=== PATIENT | female | born 1985 | race Caucasian/White ===

== ENCOUNTER 2023-07-10 18:50 | Inpatient (IN) | payer OTHER ==
[2023-07-10] MEDS ORDERED: AZITHROMYCIN 500 MG TABLET PO ONE (21:45)
[2023-07-10] MEDS: ELECTROLYTE-148 SOLN 1,000 ML IV SCH (22:40)
[2023-07-10] MEDS ORDERED: AMPICILLIN SODIUM 2 GM VIAL ONE (22:42)
[2023-07-10] MEDS ORDERED: BETAMET ACET/BETAMET NA PH 30 MG/5 ML VIAL ONE (22:42)
[2023-07-10] MEDS: AMPICILLIN - 2 GM in SODIUM CHLORIDE 100 ML IVPB SCH (22:45)
[2023-07-10] MEDS: BETAMET ACET/BETAMET NA PH 30 MG/5 ML VIAL IM SCH (22:50)
[2023-07-10 23:13] LABS: BASO % 0.3 % (0-2.0); EOS % 0.7 % (0-4.5); HEMATOCRIT 29.6 % (32.4-45.2); HEMOGLOBIN 10.2 GM/dL (10.7-15.3); LYMPH % 19.4 % (8-40); MCH 34.5 pg (25.7-33.7); MCHC 34.4 g/dl (32.0-36.0); MEAN CELL VOLUME 100.3 fl (80-96); MEAN PLT VOLUME 7.2 fl (7.5-11.1); MONO % 6.2 % (3.8-10.2); NEUT % 73.4 % (42.8-82.8); PLATELET COUNT 277 10^3/uL (134-434); RBC 2.95 M/mm3 (3.60-5.2); RDW 14.7 % (11.6-15.6); WHITE BLOOD COUNT 7.9 K/mm3 (4.0-10.0)
[2023-07-10 23:25] LABS: PROTHROMBIN TIME (PATIENT) 11.6 SEC (9.7-13.0)
[2023-07-10 23:28] LABS: ACTIVATED PTT 26.1 SECONDS (25.2-36.5)
[2023-07-10 23:31] VITALS: BMI 29.2
[2023-07-10 23:33] LABS: URINE AMPHETAMINES NEGATIVE (NEGATIVE)
[2023-07-10 23:34] LABS: COCAINE, UR NEGATIVE (NEGATIVE); OPIATES, URI NEGATIVE (NEGATIVE); URINE BARBITURATES NEGATIVE (NEGATIVE)
[2023-07-10 23:40] LABS: PHENCYCLIDINE,URINE NEGATIVE (NEGATIVE)
[2023-07-10 23:41] LABS: URINE BENZODIAZEPINES NEGATIVE (NEGATIVE)
[2023-07-10 23:46] LABS: METHADONE, UR NEGATIVE (NEGATIVE)
[2023-07-10 23:54] LABS: CALCIUM 8.5 mg/dL (8.5-10.1); POTASSIUM 3.7 mmol/L (3.5-5.1)
[2023-07-10 23:55] LABS: BLOOD UREA NITROGEN 7.2 mg/dL (7-18)
[2023-07-10 23:58] LABS: CREATININE 0.4 mg/dL (0.55-1.3)
[2023-07-11 02:16] LABS: HIV INTERPRETATION NEGATIVE (NEGATIVE)
[2023-07-11] MEDS ORDERED: AMPICILLIN SODIUM 2 GM VIAL ONE ×4 (03:57→21:22)
[2023-07-11] MEDS: AMPICILLIN - 2 GM in SODIUM CHLORIDE 100 ML IVPB SCH ×4 (04:10→21:30)
[2023-07-11 10:12] LABS: POC NITRAZINE POS
[2023-07-11] MEDS: BETAMET ACET/BETAMET NA PH 30 MG/5 ML VIAL IM SCH ×2 (11:30→22:01)
[2023-07-11] MEDS ORDERED: BETAMET ACET/BETAMET NA PH 30 MG/5 ML VIAL IM ONE (11:46)
[2023-07-11] MEDS ORDERED: ACETAMINOPHEN 325 MG TABLET (FP) ONE (20:27)
[2023-07-11] MEDS ORDERED: ACETAMINOPHEN 325 MG TABLET (FP) PO ONE (21:19)
[2023-07-11] MEDS: ELECTROLYTE-148 SOLN 1,000 ML IV SCH (23:00)
[2023-07-12] MEDS ORDERED: AMPICILLIN SODIUM 2 GM VIAL ONE ×2 (03:36→08:50)
[2023-07-12] MEDS: AMPICILLIN - 2 GM in SODIUM CHLORIDE 100 ML IVPB SCH ×3 (03:40→17:44)
[2023-07-12 12:16] LABS: BASO % 0.5 % (0-2.0); EOS % 0.1 % (0-4.5); HEMATOCRIT 29.9 % (32.4-45.2); HEMOGLOBIN 10.1 GM/dL (10.7-15.3); LYMPH % 6.5 % (8-40); MCH 34.3 pg (25.7-33.7); MCHC 33.7 g/dl (32.0-36.0); MEAN CELL VOLUME 101.6 fl (80-96); MEAN PLT VOLUME 7.1 fl (7.5-11.1); MONO % 5.1 % (3.8-10.2); NEUT % 87.8 % (42.8-82.8); PLATELET COUNT 291 10^3/uL (134-434); RBC 2.94 M/mm3 (3.60-5.2); WHITE BLOOD COUNT 18.9 K/mm3 (4.0-10.0)
[2023-07-12] MEDS: ELECTROLYTE-148 SOLN 1,000 ML IV SCH (14:00)
[2023-07-12] MEDS ORDERED: CITRIC ACID/SODIUM CITRATE 30 ML UNIT-DOSE CUP PO ONE (14:40)
[2023-07-12] MEDS ORDERED: FENTANYL CITRATE/PF 50 MCG/ML VIAL ONE (15:39)
[2023-07-12] MEDS ORDERED: morphine SULFATE/PF 1 MG/2 ML (2cc Syringe - QUVA) ONE (15:39)
[2023-07-12] MEDS ORDERED: ONDANSETRON 4 MG/2 ML VIAL ONE (15:52)
[2023-07-12] MEDS ORDERED: ceFAZolin SODIUM 1 GM VIAL ONE ×2 (15:52→23:13)
[2023-07-12] MEDS ORDERED: IBUPROFEN 800 MG/8 ML IJ IVPB PRN (16:50)
[2023-07-12] MEDS ORDERED: BENZOCAINE 20% 57 GM BOTTLE TP PRN (16:50)
[2023-07-12] MEDS ORDERED: WITCH HAZEL 50% (TUCKS) 40 PAD/JAR PAD TP PRN (16:50)
[2023-07-12] MEDS ORDERED: METHYLERGONOVINE MALEATE 0.2 MG/1 ML AMP IM PRN (16:50)
[2023-07-12 17:05] LABS: CORD HCO3 21.8 mmHg (20-29); CORD PCO2 37.7 mmHg (30-78); CORD pH 7.38 (7.14-7.44)
[2023-07-12 17:06] LABS: CORD HCO3 23.6 mmHg (20-29); CORD PCO2 43.7 mmHg (30-78); CORD pH 7.351 (7.14-7.44)
[2023-07-12] MEDS: OXYTOCIN 20 UNITS in 0.9% NS 20 UNIT/1,000 ML INFUS.BAG IV SCH (17:20)
[2023-07-12] MEDS: FERROUS SO4 325 MG TABLET (FP) PO SCH (17:46)
[2023-07-12] MEDS ORDERED: SODIUM CHLORIDE 1,000 ML IV STA (21:27)
[2023-07-12] MEDS: AMOXICILLIN 250 MG CAPSULE PO SCH (22:00)
[2023-07-12 22:15] LABS: BASO % 0.1 % (0-2.0); EOS % 0.7 % (0-4.5); HEMATOCRIT 9.5 % (32.4-45.2); LYMPH % 7.4 % (8-40); MCH 34.5 pg (25.7-33.7); MCHC 32.4 g/dl (32.0-36.0); MEAN CELL VOLUME 106.4 fl (80-96); MEAN PLT VOLUME 7.1 fl (7.5-11.1); MONO % 1.5 % (3.8-10.2); NEUT % 90.3 % (42.8-82.8); RBC 0.89 M/mm3 (3.60-5.2); RDW 15.7 % (11.6-15.6); WHITE BLOOD COUNT 2.5 K/mm3 (4.0-10.0)
[2023-07-12] MEDS ORDERED: SUCCINYLCHOLINE CHLORIDE 200 MG/10 ML SYRINGE ONE (22:16)
[2023-07-12] MEDS ORDERED: ROCURONIUM BROMIDE 50 MG/5 ML SYRINGE ONE ×2 (22:16→23:48)
[2023-07-12] MEDS ORDERED: VASOPRESSIN 20 UNITS/ML VIAL IV ONE (22:17)
[2023-07-12 22:21] LABS: HEMOGLOBIN 3.1 GM/dL (10.7-15.3); PLATELET COUNT 62 10^3/uL (134-434)
[2023-07-12] MEDS ORDERED: MIDAZOLAM HCL 2 MG/2 ML SINGLE DOSE VIAL ONE ×2 (22:45→23:46)
[2023-07-12 22:48] LABS: ANISOCYTOSIS 1+; MACROCYTOSIS 0; ROULEAU 1+
[2023-07-12] MEDS ORDERED: ceFAZolin SODIUM 1 GM VIAL IVPB ONE (23:13)
[2023-07-12] MEDS ORDERED: DEXAMETHASONE SOD PHOSPHATE 4 MG/1 ML VIAL ONE (23:14)
[2023-07-12] MEDS ORDERED: METHYLERGONOVINE MALEATE 0.2 MG/1 ML AMP IM ONE (23:48)
[2023-07-13] MEDS ORDERED: SODIUM BICARBONATE 8.4% 50 MEQ/50 ML DISP.SYRIN ONE (00:05)
[2023-07-13] MEDS ORDERED: CALCIUM CHLORIDE 1 GM/10 ML *DISP.SYRIN ONE ×2 (00:05)
[2023-07-13] MEDS ORDERED: TRANEXAMIC ACID 1000 MG/10 ML VIAL ONE (00:19)
[2023-07-13 00:31] LABS: HEMATOCRIT 22.8 % (32.4-45.2); HEMOGLOBIN 7.6 GM/dL (10.7-15.3); MCH 31.1 pg (25.7-33.7); MCHC 33.3 g/dl (32.0-36.0); MEAN CELL VOLUME 93.4 fl (80-96); MEAN PLT VOLUME 6.5 fl (7.5-11.1); PLATELET COUNT 96 10^3/uL (134-434); RBC 2.44 M/mm3 (3.60-5.2); WHITE BLOOD COUNT 8.1 K/mm3 (4.0-10.0)
[2023-07-13] MEDS ORDERED: ROCURONIUM BROMIDE 50 MG/5 ML SYRINGE ONE (00:51)
[2023-07-13 00:54] LABS: ALBUMIN 1.6 g/dl (3.4-5.0)
[2023-07-13 00:57] LABS: CREATININE 0.8 mg/dL (0.55-1.3)
[2023-07-13 00:59] LABS: BILIRUBIN,TOTAL 0.6 mg/dL (0.2-1); TOT PROT 3.3 g/dl (6.4-8.2)
[2023-07-13] MEDS ORDERED: PROPOFOL 1,000,000 MCG/100 ML VIAL ONE (01:07)
[2023-07-13] MEDS: PROPOFOL 1,000,000 MCG/100 ML VIAL IVPB SCH (01:15)
[2023-07-13] MEDS ORDERED: PROPOFOL 1000 MG/100 ML VIAL IVPB ONE (01:15)
[2023-07-13 01:55] LABS: CALCIUM 12.2 mg/dL (8.5-10.1)
[2023-07-13 01:57] LABS: ARTERIAL BLD GAS O2 SATURATION 94.3 % (95-98); ARTERIAL BLOOD GAS BASE EXCESS -6.8 mmol/L (-2-2); ARTERIAL BLOOD GAS PO2 81.3 mmHg (80-100); ARTERIAL BLOOD GAS pH 7.258 (7.350-7.450)
[2023-07-13] MEDS ORDERED: FENTANYL CITRATE/PF 50 MCG/ML VIAL IVPUSH PRN (02:13)
[2023-07-13 02:15] LABS: VENT MODE A/C; VENT RATE 14
[2023-07-13] MEDS: LACTATED RINGERS SOLUTION 1,000 ML/1,000 ML INFUS.BAG IV SCH (02:30)
[2023-07-13 02:52] LABS: HEMATOCRIT 33.2 % (32.4-45.2); HEMOGLOBIN 11.3 GM/dL (10.7-15.3); MCHC 34.1 g/dl (32.0-36.0); MEAN CELL VOLUME 88.1 fl (80-96); MEAN PLT VOLUME 6.9 fl (7.5-11.1); PLATELET COUNT 82 10^3/uL (134-434); RBC 3.77 M/mm3 (3.60-5.2); RDW 16.9 % (11.6-15.6); WHITE BLOOD COUNT 13.5 K/mm3 (4.0-10.0)
[2023-07-13 03:11] LABS: POTASSIUM 3.7 mmol/L (3.5-5.1)
[2023-07-13 03:13] LABS: BLOOD UREA NITROGEN 7.4 mg/dL (7-18); MAGNESIUM 1.4 mg/dL (1.8-2.4)
[2023-07-13 03:17] LABS: CREATININE 0.7 mg/dL (0.55-1.3); PHOSPHOROUS 3.8 mg/dL (2.5-4.9)
[2023-07-13 03:36] LABS: CALCIUM 8.5 mg/dL (8.5-10.1)
[2023-07-13] MEDS: ELECTROLYTE-148 SOLN 1,000 ML IV SCH ×2 (03:52→21:54)
[2023-07-13 03:58] LABS: ANISOCYTOSIS 0; MACROCYTOSIS 0
[2023-07-13] MEDS ORDERED: LACTATED RINGERS SOLUTION 1,000 ML/1,000 ML INFUS.BAG IV STA (04:25)
[2023-07-13] MEDS: NOREPINEPHRINE BITARTRATE/D5W 8 MG/250 ML BAG IVPB SCH (04:30)
[2023-07-13] MEDS: FENTANYL NS IVPB 500 MCG/100 ML BAG IVPB SCH (04:48)
[2023-07-13] MEDS ORDERED: oxyCODONE HCL 5 MG TABLET PO PRN (04:50)
[2023-07-13] MEDS: AMOXICILLIN 250 MG CAPSULE PO SCH (06:16)
[2023-07-13 07:19] LABS: HEMATOCRIT 31.1 % (32.4-45.2); HEMOGLOBIN 10.6 GM/dL (10.7-15.3); MCH 29.9 pg (25.7-33.7); MCHC 34.1 g/dl (32.0-36.0); MEAN CELL VOLUME 87.9 fl (80-96); MEAN PLT VOLUME 7.4 fl (7.5-11.1); PLATELET COUNT 113 10^3/uL (134-434); RBC 3.54 M/mm3 (3.60-5.2); RDW 17.3 % (11.6-15.6); WHITE BLOOD COUNT 17.7 K/mm3 (4.0-10.0)
[2023-07-13 07:36] LABS: ARTERIAL BLD GAS O2 SATURATION 98.7 % (95-98); ARTERIAL BLOOD GAS BASE EXCESS -2.8 mmol/L (-2-2); ARTERIAL BLOOD GAS PO2 131.4 mmHg (80-100); ARTERIAL BLOOD GAS pH 7.433 (7.350-7.450)
[2023-07-13 07:38] LABS: VENT MODE A/C
[2023-07-13 07:39] LABS: VENT RATE 18
[2023-07-13] MEDS ORDERED: MAGNESIUM SULF 50% (8.12 MEQ/2 ML-1 GM VIAL) IVPB ONE (08:19)
[2023-07-13 09:54] LABS: ANISOCYTOSIS 0; HELMET CELLS 0; HOWELL-JOLLY BODIES 0; MACROCYTOSIS 0; OVALOCYTE 0; ROULEAU 0; SICKELED CELLS 0; TARGET CELLS 0; TEAR DROP CELLS 0; TOXIC GRANULATION 0
[2023-07-13 11:09] LABS: INR 1.14 (0.83-1.09); PROTHROMBIN TIME (PATIENT) 13.2 SEC (9.7-13.0)
[2023-07-13 11:11] LABS: ACTIVATED PTT 26.8 SECONDS (25.2-36.5)
[2023-07-13] MEDS: OXYTOCIN 20 UNITS in 0.9% NS 20 UNIT/1,000 ML INFUS.BAG IV SCH ×2 (11:14→19:29)
[2023-07-13] MEDS: ACETAMINOPHEN 1000 MG/100 ML BAG IVPB PRN ×2 (13:14→19:19)
[2023-07-13] MEDS: FERROUS SO4 325 MG TABLET (FP) PO SCH ×2 (13:15→17:38)
[2023-07-13] MEDS: PRENATAL VITAMINS W/ FOLIC ACID TABLET (FP) PO SCH (13:15)
[2023-07-13 15:12] LABS: HEMATOCRIT 26.7 % (32.4-45.2); MCH 29.5 pg (25.7-33.7); MCHC 33.8 g/dl (32.0-36.0); MEAN CELL VOLUME 87.3 fl (80-96); MEAN PLT VOLUME 7.5 fl (7.5-11.1); PLATELET COUNT 69 10^3/uL (134-434); RBC 3.06 M/mm3 (3.60-5.2); RDW 17.5 % (11.6-15.6)
[2023-07-13] MEDS: MEROPENEM 1 GM in DEXTROSE 5%-WATER 100 ML IVPB SCH ×2 (15:33→17:35)
[2023-07-13] MEDS: VANCOMYCIN/WATER FOR INJ (PEG) 1,000 MG/200 ML BAG IVPB SCH (15:33)
[2023-07-13 15:38] LABS: ANISOCYTOSIS 0; HELMET CELLS 0; HOWELL-JOLLY BODIES 0; MACROCYTOSIS 0; OVALOCYTE 0; ROULEAU 0; SICKELED CELLS 0; TARGET CELLS 0; TEAR DROP CELLS 0; TOXIC GRANULATION 0
[2023-07-13] MEDS ORDERED: BISACODYL 10 MG SUPP.RECT RC PRN (16:50)
[2023-07-13] MEDS: SIMETHICONE 80 MG TAB.CHEW (FP) PO PRN ×2 (17:35→21:57)
[2023-07-13 20:52] LABS: BASO % 0.1 % (0-2.0); EOS % 0.3 % (0-4.5); HEMATOCRIT 25.4 % (32.4-45.2); HEMOGLOBIN 8.6 GM/dL (10.7-15.3); LYMPH % 3.4 % (8-40); MCH 29.6 pg (25.7-33.7); MCHC 33.9 g/dl (32.0-36.0); MEAN CELL VOLUME 87.3 fl (80-96); MEAN PLT VOLUME 7.6 fl (7.5-11.1); MONO % 3.7 % (3.8-10.2); NEUT % 92.5 % (42.8-82.8); PLATELET COUNT 67 10^3/uL (134-434); RBC 2.91 M/mm3 (3.60-5.2); RDW 17.7 % (11.6-15.6); WHITE BLOOD COUNT 16.6 K/mm3 (4.0-10.0)
[2023-07-13 21:08] LABS: INR 1.2 (0.83-1.09); PROTHROMBIN TIME (PATIENT) 13.9 SEC (9.7-13.0)
[2023-07-14] MEDS: PROPOFOL 1,000,000 MCG/100 ML VIAL IVPB SCH (01:15)
[2023-07-14] MEDS: ACETAMINOPHEN 1000 MG/100 ML BAG IVPB PRN (01:33)
[2023-07-14] MEDS: MEROPENEM 1 GM in DEXTROSE 5%-WATER 100 ML IVPB SCH ×2 (01:35→09:27)
[2023-07-14] MEDS: LACTATED RINGERS SOLUTION 1,000 ML/1,000 ML INFUS.BAG IV SCH (02:15)
[2023-07-14] MEDS: VANCOMYCIN/WATER FOR INJ (PEG) 1,000 MG/200 ML BAG IVPB SCH ×2 (02:38→15:27)
[2023-07-14] MEDS: FENTANYL NS IVPB 500 MCG/100 ML BAG IVPB SCH (04:00)
[2023-07-14] MEDS: NOREPINEPHRINE BITARTRATE/D5W 8 MG/250 ML BAG IVPB SCH (04:30)
[2023-07-14 07:52] LABS: INR 1.22 (0.83-1.09); PROTHROMBIN TIME (PATIENT) 14.1 SEC (9.7-13.0)
[2023-07-14 07:54] LABS: ACTIVATED PTT 27.9 SECONDS (25.2-36.5)
[2023-07-14 07:56] LABS: HEMATOCRIT 24.8 % (32.4-45.2); HEMOGLOBIN 8.4 GM/dL (10.7-15.3); MCH 29.4 pg (25.7-33.7); MCHC 33.6 g/dl (32.0-36.0); MEAN CELL VOLUME 87.4 fl (80-96); MEAN PLT VOLUME 8.8 fl (7.5-11.1); PLATELET COUNT 74 10^3/uL (134-434); RBC 2.84 M/mm3 (3.60-5.2); RDW 18.1 % (11.6-15.6); WHITE BLOOD COUNT 16.4 K/mm3 (4.0-10.0)
[2023-07-14 08:30] LABS: POTASSIUM 3.5 mmol/L (3.5-5.1)
[2023-07-14 08:34] LABS: ALBUMIN 1.9 g/dl (3.4-5.0); BLOOD UREA NITROGEN 7.2 mg/dL (7-18); CALCIUM 7.5 mg/dL (8.5-10.1)
[2023-07-14 08:37] LABS: CREATININE 0.4 mg/dL (0.55-1.3); PHOSPHOROUS 3.2 mg/dL (2.5-4.9)
[2023-07-14 08:39] LABS: BILIRUBIN,TOTAL 0.5 mg/dL (0.2-1); TOT PROT 4.1 g/dl (6.4-8.2)
[2023-07-14] MEDS: SIMETHICONE 80 MG TAB.CHEW (FP) PO PRN ×2 (09:27→16:56)
[2023-07-14] MEDS: FERROUS SO4 325 MG TABLET (FP) PO SCH ×2 (09:28→16:56)
[2023-07-14 09:46] LABS: ANISOCYTOSIS 2+; MACROCYTOSIS 0; OVALOCYTE 2+
[2023-07-14] MEDS ORDERED: oxyCODONE HCL 5 MG TABLET PO ONE (10:15)
[2023-07-14] MEDS: PRENATAL VITAMINS W/ FOLIC ACID TABLET (FP) PO SCH (13:05)
[2023-07-14] MEDS: POLYETHYLENE GLYCOL (HEALTHYLAX) 3350 17 GM PACKET PO SCH ×2 (15:28→21:26)
[2023-07-14] MEDS ORDERED: ACETAMINOPHEN 1000 MG/100 ML BAG IVPB PRN (15:29)
[2023-07-14] MEDS: PIPERACILLIN/TAZOB 4.5 GM 4.5 GM in DEXTROSE 5%-WATER 100 ML IVPB SCH (17:19)
[2023-07-14] MEDS: IBUPROFEN 600 MG TABLET (FP) PO PRN (21:26)
[2023-07-14 22:20] LABS: URINE APPEARANCE CLEAR; URINE BILIRUBIN NEGATIVE (NEGATIVE); URINE COLOR YELLOW; URINE GLUCOSE (UA) NEGATIVE (NEGATIVE); URINE KETONE NEGATIVE (NEGATIVE)
[2023-07-14 22:21] LABS: URINE LEUK ESTERASE TRACE (NEGATIVE); URINE NITRITE NEGATIVE (NEGATIVE); URINE PROTEIN NEGATIVE (NEGATIVE); URINE UROBILINOGEN 0.2 mg/dL (0.2-1.0)
[2023-07-14] MEDS: ELECTROLYTE-148 SOLN 1,000 ML IV SCH (22:35)
[2023-07-15] MEDS: PIPERACILLIN/TAZOB 4.5 GM 4.5 GM in DEXTROSE 5%-WATER 100 ML IVPB SCH ×3 (01:06→20:22)
[2023-07-15] MEDS: PROPOFOL 1,000,000 MCG/100 ML VIAL IVPB SCH (01:06)
[2023-07-15] MEDS: ACETAMINOPHEN 325 MG TABLET (FP) PO PRN ×3 (01:22→22:19)
[2023-07-15] MEDS: LACTATED RINGERS SOLUTION 1,000 ML/1,000 ML INFUS.BAG IV SCH (02:34)
[2023-07-15] MEDS: FENTANYL NS IVPB 500 MCG/100 ML BAG IVPB SCH (06:43)
[2023-07-15] MEDS: NOREPINEPHRINE BITARTRATE/D5W 8 MG/250 ML BAG IVPB SCH (06:44)
[2023-07-15] MEDS: IBUPROFEN 600 MG TABLET (FP) PO PRN ×3 (06:44→20:21)
[2023-07-15 07:41] LABS: HEMATOCRIT 24.6 % (32.4-45.2); HEMOGLOBIN 8.3 GM/dL (10.7-15.3); MCH 30.2 pg (25.7-33.7); MCHC 33.9 g/dl (32.0-36.0); MEAN CELL VOLUME 89.1 fl (80-96); MEAN PLT VOLUME 8.5 fl (7.5-11.1); PLATELET COUNT 94 10^3/uL (134-434); RBC 2.76 M/mm3 (3.60-5.2); RDW 18.1 % (11.6-15.6); WHITE BLOOD COUNT 10.5 K/mm3 (4.0-10.0)
[2023-07-15 07:57] LABS: POTASSIUM 3.6 mmol/L (3.5-5.1)
[2023-07-15 08:00] LABS: ALBUMIN 1.8 g/dl (3.4-5.0); CALCIUM 7.5 mg/dL (8.5-10.1)
[2023-07-15 08:01] LABS: BLOOD UREA NITROGEN 11.5 mg/dL (7-18); MAGNESIUM 1.9 mg/dL (1.8-2.4)
[2023-07-15 08:03] LABS: PHOSPHOROUS 3.9 mg/dL (2.5-4.9)
[2023-07-15 08:04] LABS: CREATININE 0.4 mg/dL (0.55-1.3)
[2023-07-15 08:05] LABS: BILIRUBIN,TOTAL 0.4 mg/dL (0.2-1); TOT PROT 4.3 g/dl (6.4-8.2)
[2023-07-15] MEDS: POLYETHYLENE GLYCOL (HEALTHYLAX) 3350 17 GM PACKET PO SCH ×2 (09:21→22:12)
[2023-07-15] MEDS: FERROUS SO4 325 MG TABLET (FP) PO SCH ×2 (09:21→17:39)
[2023-07-15] MEDS: PRENATAL VITAMINS W/ FOLIC ACID TABLET (FP) PO SCH (09:21)
[2023-07-15 10:17] LABS: ANISOCYTOSIS 0; HELMET CELLS 0; HOWELL-JOLLY BODIES 0; MACROCYTOSIS 0; OVALOCYTE 0; ROULEAU 0; SICKELED CELLS 0; TARGET CELLS 0; TEAR DROP CELLS 0; TOXIC GRANULATION 0
[2023-07-15 16:47] VITALS: RESP 18
[2023-07-15] MEDS ORDERED: WITCH HAZEL 50% (TUCKS) 40 PAD/JAR PAD TP PRN (17:43)
[2023-07-15] MEDS ORDERED: BISACODYL 10 MG SUPP.RECT RC PRN (17:43)
[2023-07-15] MEDS ORDERED: BENZOCAINE 20% 57 GM BOTTLE TP PRN (17:43)
[2023-07-15] MEDS: SIMETHICONE 80 MG TAB.CHEW (FP) PO PRN (17:56)
[2023-07-16] MEDS: PIPERACILLIN/TAZOB 4.5 GM 4.5 GM in DEXTROSE 5%-WATER 100 ML IVPB SCH ×3 (01:40→17:48)
[2023-07-16] MEDS: IBUPROFEN 600 MG TABLET (FP) PO PRN ×4 (01:40→19:28)
[2023-07-16] MEDS: FERROUS SO4 325 MG TABLET (FP) PO SCH ×2 (09:18→17:47)
[2023-07-16] MEDS: PRENATAL VITAMINS W/ FOLIC ACID TABLET (FP) PO SCH (09:18)
[2023-07-16] MEDS: POLYETHYLENE GLYCOL (HEALTHYLAX) 3350 17 GM PACKET PO SCH ×2 (09:26→21:55)
[2023-07-16] MEDS: SIMETHICONE 80 MG TAB.CHEW (FP) PO PRN ×3 (09:56→19:28)
[2023-07-16 15:53] LABS: HEMATOCRIT 25.5 % (32.4-45.2); HEMOGLOBIN 8.8 GM/dL (10.7-15.3); MCHC 34.5 g/dl (32.0-36.0); MEAN CELL VOLUME 87.1 fl (80-96); MEAN PLT VOLUME 7.2 fl (7.5-11.1); PLATELET COUNT 152 10^3/uL (134-434); RBC 2.93 M/mm3 (3.60-5.2); RDW 18.1 % (11.6-15.6); WHITE BLOOD COUNT 7.4 K/mm3 (4.0-10.0)
[2023-07-16] MEDS: AMOXICILLIN 250 MG CAPSULE PO SCH (19:18)
[2023-07-16] MEDS: ACETAMINOPHEN 325 MG TABLET (FP) PO PRN (20:43)
[2023-07-17] MEDS: PIPERACILLIN/TAZOB 4.5 GM 4.5 GM in DEXTROSE 5%-WATER 100 ML IVPB SCH ×2 (01:26→10:22)
[2023-07-17] MEDS: IBUPROFEN 600 MG TABLET (FP) PO PRN ×3 (01:36→13:16)
[2023-07-17] MEDS: FERROUS SO4 325 MG TABLET (FP) PO SCH (08:10)
[2023-07-17 08:41] VITALS: BP 114/71; PULSE 63; TEMP 98.8
[2023-07-17] MEDS ORDERED: PIPERACILLIN/TAZOB 4.5 GM 4.5 GM in DEXTROSE 5%-WATER 100 ML IVPB SCH (10:00)
[2023-07-17] MEDS: PRENATAL VITAMINS W/ FOLIC ACID TABLET (FP) PO SCH (10:19)
[2023-07-17] MEDS: POLYETHYLENE GLYCOL (HEALTHYLAX) 3350 17 GM PACKET PO SCH (10:20)
== END 2023-07-17 14:41 | disposition home or self-care (01) | DRG 540 ==
LOC: JLDR 18:50 → J3W 07-12 18:09 → JICU 07-13 02:38 → J3W 07-15 16:47
PROVIDERS: ADMIT Student in an Organized Health Care Education/Training Program; ATTEND Student in an Organized Health Care Education/Training Program
PROC: 0UJD0ZZ Inspection of Uterus and Cervix, Open Approach (ICD-10-PCS; 2023-07-12)
PROC: 5A1945Z Respiratory Ventilation, 24-96 Consecutive Hours (ICD-10-PCS; 2023-07-12)
PROC: 0BH17EZ Insertion of Endotracheal Airway into Trachea, Via Natural or Artificial Opening (ICD-10-PCS; 2023-07-12)
PROC: 0WCG0ZZ Extirpation of Matter from Peritoneal Cavity, Open Approach (ICD-10-PCS; 2023-07-12)
PROC: 30233K1 Transfusion of Nonautologous Frozen Plasma into Peripheral Vein, Percutaneous Approach (ICD-10-PCS; 2023-07-12)
PROC: 30233N1 Transfusion of Nonautologous Red Blood Cells into Peripheral Vein, Percutaneous Approach (ICD-10-PCS; 2023-07-12)
PROC: 30233R1 Transfusion of Nonautologous Platelets into Peripheral Vein, Percutaneous Approach (ICD-10-PCS; 2023-07-12)
PROC: 30233M1 Transfusion of Nonautologous Plasma Cryoprecipitate into Peripheral Vein, Percutaneous Approach (ICD-10-PCS; 2023-07-12)
PROC: 0UC90ZZ Extirpation of Matter from Uterus, Open Approach (ICD-10-PCS; principal; 2023-07-12 22:45)
PROC: 10D00Z1 Extraction of Products of Conception, Low, Open Approach (ICD-10-PCS; 2023-07-12 22:45)
DX: O42.919 Preterm premature rupture of membranes, unspecified as to length of time between rupture and onset of labor, unspecified trimester (principal); Z3A.33 33 weeks gestation of pregnancy; Z37.0 Single live birth; O77.0 Labor and delivery complicated by meconium in amniotic fluid; D65 Disseminated intravascular coagulation [defibrination syndrome]; O72.1 Other immediate postpartum hemorrhage; K66.1 Hemoperitoneum; T81.19XA Other postprocedural shock, initial encounter; Y83.8 Other surgical procedures as the cause of abnormal reaction of the patient, or of later complication, without mention of misadventure at the time of the procedure; K56.7 Ileus, unspecified; K91.89 Other postprocedural complications and disorders of digestive system; D72.829 Elevated white blood cell count, unspecified; J95.89 Other postprocedural complications and disorders of respiratory system, not elsewhere classified; J98.11 Atelectasis; O86.12 Endometritis following delivery; B96.20 Unspecified Escherichia coli [E. coli] as the cause of diseases classified elsewhere
CPT/HCPCS: 36415; 36430; 36600; 71045-TC-FY; 74018-TC-FY; 76819-TC; 80048; 80053; 80307; 81003; 82803; 83605; 83735; 83986-QW; 84100; 85025; 85027; 85384; 85610; 85730; 86695; 86696; 86780; 86850; 86900; 86901; 86922; 87040; 87081; 87086; 87389; 87491; 87591; 87635; 88307-TC; 93005; 93010; 93970-TC; 94002; 94760; 96372; P9012; P9017; P9034; P9058

== ENCOUNTER 2023-07-19 19:24 | Inpatient (IN) | payer OTHER ==
[2023-07-19] MEDS ORDERED: LACTATED RINGERS SOLUTION 1,000 ML/1,000 ML INFUS.BAG IV STA ×2 (21:27→22:14)
[2023-07-19 21:45] LABS: VENOUS BASE EXCESS -2.3 mmol/L (-2-2); VENOUS O2 SATURATION 83.7 % (70-80); VENOUS PCO2 32.3 mmHg (38-52); VENOUS PH 7.437 (7.310-7.410)
[2023-07-19 21:46] LABS: BASO % 0.3 % (0-2.0); EOS % 0.1 % (0-4.5); HEMATOCRIT 28.8 % (32.4-45.2); HEMOGLOBIN 9.4 GM/dL (10.7-15.3); LYMPH % 11.1 % (8-40); MCH 29.7 pg (25.7-33.7); MCHC 32.7 g/dl (32.0-36.0); MEAN CELL VOLUME 90.7 fl (80-96); MEAN PLT VOLUME 7.3 fl (7.5-11.1); MONO % 3.5 % (3.8-10.2); PLATELET COUNT 460 10^3/uL (134-434); RBC 3.18 M/mm3 (3.60-5.2); RDW 17.9 % (11.6-15.6); WHITE BLOOD COUNT 18.7 K/mm3 (4.0-10.0)
[2023-07-19 21:53] LABS: INR 1.14 (0.83-1.09); PROTHROMBIN TIME (PATIENT) 13.2 SEC (9.7-13.0)
[2023-07-19 21:56] LABS: ACTIVATED PTT 27.5 SECONDS (25.2-36.5)
[2023-07-19 22:02] LABS: CHLORIDE 110 mmol/L (98-107); POTASSIUM 4.3 mmol/L (3.5-5.1); SODIUM 144 mmol/L (136-145)
[2023-07-19 22:04] LABS: ANION GAP 11 MMOL/L (8-16); BLOOD UREA NITROGEN 10.9 mg/dL (7-18); CALCIUM 7.8 mg/dL (8.5-10.1); CO2 23 mmol/L (21-32); GLUCOSE,RANDOM 108 mg/dL (74-106)
[2023-07-19 22:07] LABS: SGPT/ALT 15 U/L (13-61)
[2023-07-19 22:08] LABS: CREATININE 0.6 mg/dL (0.55-1.3); SGOT/AST 19 U/L (15-37)
[2023-07-19 22:09] LABS: TOT PROT 6.1 g/dl (6.4-8.2)
[2023-07-19 22:10] LABS: ALK PHOS 83 U/L (45-117); BILIRUBIN,TOTAL 0.5 mg/dL (0.2-1)
[2023-07-19 22:14] LABS: ALBUMIN 2.3 g/dl (3.4-5.0)
[2023-07-19] MEDS ORDERED: morphine SULFATE 4 MG/ML VIAL ONE (22:41)
[2023-07-19] MEDS ORDERED: morphine CARPU-JECT 4 MG/1 ML DISP.SYRIN IVPUSH ONE (22:41)
[2023-07-19 23:08] LABS: ANISOCYTOSIS 2+; MACROCYTOSIS 0
[2023-07-19 23:10] LABS: EPI CELLS 18 /uL (0-25.1); HYALINE CASTS 1 /uL (0-3.1); URINE APPEARANCE CLEAR; URINE BACTERIA 51 /uL (0-1359); URINE BILIRUBIN NEGATIVE (NEGATIVE); URINE COLOR YELLOW; URINE GLUCOSE (UA) NEGATIVE (NEGATIVE); URINE KETONE NEGATIVE (NEGATIVE); URINE LEUK ESTERASE 1+ (NEGATIVE); URINE NITRITE NEGATIVE (NEGATIVE); URINE PROTEIN TRACE (NEGATIVE); URINE RBC 148 /uL (0-23.9); URINE WBC 104 /uL (0-25.8)
[2023-07-19] MEDS ORDERED: PIPERACILLIN/TAZOB 3.375 GM 3.375 GM/50 ML BAG IVPB ONE (23:17)
[2023-07-19] MEDS ORDERED: PIPERACILLIN/TAZOB 3.375 GM 3.375 GM in DEXTROSE 5%-WATER - 50 ML IVPB ONE (23:17)
[2023-07-20] MEDS ORDERED: morphine CARPU-JECT 2 MG/1 ML DISP.SYRIN IVPUSH ONE (00:23)
[2023-07-20] MEDS ORDERED: morphine SULFATE 4 MG/ML VIAL IVPUSH ONE (06:09)
[2023-07-20] MEDS ORDERED: morphine SULFATE 4 MG/ML VIAL ONE ×2 (06:12→13:18)
[2023-07-20] MEDS: SODIUM CHLORIDE 1,000 ML IV SCH ×2 (06:25→15:27)
[2023-07-20] MEDS ORDERED: ACETAMINOPHEN 1000 MG/100 ML BAG IVPB ONE (06:47)
[2023-07-20] MEDS ORDERED: PIPERACILLIN/TAZOB 3.375 GM 3.375 GM in DEXTROSE 5%-WATER - 50 ML IVPB SCH (08:00)
[2023-07-20] MEDS ORDERED: ENOXAPARIN NA (PORCINE) 40 MG/0.4 ML DISP.SYRIN SQ SCH (10:00)
[2023-07-20 13:03] LABS: HEMATOCRIT 25.8 % (32.4-45.2); HEMOGLOBIN 8.8 GM/dL (10.7-15.3); MCH 30.2 pg (25.7-33.7); MCHC 34.2 g/dl (32.0-36.0); MEAN CELL VOLUME 88.2 fl (80-96); MEAN PLT VOLUME 6.3 fl (7.5-11.1); PLATELET COUNT 467 10^3/uL (134-434); RBC 2.93 M/mm3 (3.60-5.2); RDW 18.1 % (11.6-15.6); WHITE BLOOD COUNT 17.4 K/mm3 (4.0-10.0)
[2023-07-20] MEDS: morphine SULFATE 4 MG/ML VIAL IVPUSH PRN (13:26)
[2023-07-20 13:31] LABS: POTASSIUM 3.8 mmol/L (3.5-5.1)
[2023-07-20 13:33] LABS: BLOOD UREA NITROGEN 6.8 mg/dL (7-18)
[2023-07-20 13:34] LABS: ANISOCYTOSIS 0; HELMET CELLS 0; HOWELL-JOLLY BODIES 0; MACROCYTOSIS 0; OVALOCYTE 0; ROULEAU 0; SICKELED CELLS 0; TARGET CELLS 0; TEAR DROP CELLS 0; TOXIC GRANULATION 0
[2023-07-20 13:37] LABS: CREATININE 0.4 mg/dL (0.55-1.3); PHOSPHOROUS 3.2 mg/dL (2.5-4.9)
[2023-07-20 15:39] VITALS: BMI 27.8
[2023-07-20] MEDS ORDERED: VANCOMYCIN/WATER FOR INJ (PEG) 1,000 MG/200 ML BAG IVPB ONE (15:41)
[2023-07-20] MEDS: ACETAMINOPHEN 1000 MG/100 ML BAG IVPB PRN ×2 (15:50→22:17)
[2023-07-20] MEDS ORDERED: PIPERACILLIN/TAZOBACTAM 3.375 GM VIAL IVPB ONE (17:01)
[2023-07-20] MEDS: PIPERACILLIN/TAZOB 3.375 GM 3.375 GM in DEXTROSE 5%-WATER - 50 ML IVPB SCH (17:08)
[2023-07-21] MEDS: morphine SULFATE 4 MG/ML VIAL IVPUSH PRN ×2 (01:09→14:12)
[2023-07-21] MEDS: PIPERACILLIN/TAZOB 3.375 GM 3.375 GM in DEXTROSE 5%-WATER - 50 ML IVPB SCH ×3 (01:09→18:17)
[2023-07-21] MEDS: SODIUM CHLORIDE 1,000 ML IV SCH (05:22)
[2023-07-21] MEDS: ACETAMINOPHEN 1000 MG/100 ML BAG IVPB PRN ×2 (06:17→11:26)
[2023-07-21] MEDS ORDERED: PIPERACILLIN/TAZOB 3.375 GM 3.375 GM in DEXTROSE 5%-WATER - 50 ML IVPB SCH (10:00)
[2023-07-21 10:24] LABS: BASO % 0.3 % (0-2.0); EOS % 0.5 % (0-4.5); HEMOGLOBIN 8.7 GM/dL (10.7-15.3); LYMPH % 10.9 % (8-40); MCH 29.7 pg (25.7-33.7); MCHC 33.6 g/dl (32.0-36.0); MEAN CELL VOLUME 88.5 fl (80-96); MEAN PLT VOLUME 6.4 fl (7.5-11.1); MONO % 3.3 % (3.8-10.2); PLATELET COUNT 566 10^3/uL (134-434); RBC 2.94 M/mm3 (3.60-5.2); RDW 17.7 % (11.6-15.6)
[2023-07-21 10:33] LABS: POTASSIUM 3.8 mmol/L (3.5-5.1)
[2023-07-21 10:41] LABS: CALCIUM 8.2 mg/dL (8.5-10.1)
[2023-07-21 10:42] LABS: ALBUMIN 2.2 g/dl (3.4-5.0); BLOOD UREA NITROGEN 6.9 mg/dL (7-18)
[2023-07-21 10:45] LABS: CREATININE 0.4 mg/dL (0.55-1.3)
[2023-07-21 10:47] LABS: BILIRUBIN,TOTAL 0.4 mg/dL (0.2-1); TOT PROT 5.6 g/dl (6.4-8.2)
[2023-07-21 16:57] LABS: BASO % 0.3 % (0-2.0); EOS % 0.5 % (0-4.5); HEMATOCRIT 27.6 % (32.4-45.2); HEMOGLOBIN 9.1 GM/dL (10.7-15.3); LYMPH % 11.7 % (8-40); MCH 29.4 pg (25.7-33.7); MCHC 33.1 g/dl (32.0-36.0); MEAN CELL VOLUME 88.8 fl (80-96); MEAN PLT VOLUME 6.2 fl (7.5-11.1); MONO % 3.6 % (3.8-10.2); NEUT % 83.9 % (42.8-82.8); PLATELET COUNT 629 10^3/uL (134-434); RBC 3.11 M/mm3 (3.60-5.2); RDW 17.7 % (11.6-15.6); WHITE BLOOD COUNT 16.6 K/mm3 (4.0-10.0)
[2023-07-21 17:20] LABS: ALBUMIN 2.2 g/dl (3.4-5.0); CALCIUM 8.2 mg/dL (8.5-10.1); MAGNESIUM 2.1 mg/dL (1.8-2.4)
[2023-07-21 17:23] LABS: CREATININE 0.4 mg/dL (0.55-1.3)
[2023-07-21 17:25] LABS: BILIRUBIN,TOTAL 0.5 mg/dL (0.2-1); TOT PROT 5.8 g/dl (6.4-8.2)
[2023-07-21] MEDS ORDERED: PIPERACILLIN/TAZOBACTAM 3.375 GM VIAL IVPB ONE (18:12)
[2023-07-21] MEDS: IBUPROFEN 600 MG TABLET (FP) PO PRN (18:14)
[2023-07-22] MEDS: morphine SULFATE 4 MG/ML VIAL IVPUSH PRN ×2 (00:16→09:00)
[2023-07-22] MEDS: PIPERACILLIN/TAZOB 3.375 GM 3.375 GM in DEXTROSE 5%-WATER - 50 ML IVPB SCH ×3 (01:38→19:12)
[2023-07-22] MEDS: IBUPROFEN 600 MG TABLET (FP) PO PRN (02:27)
[2023-07-22] MEDS: SODIUM CHLORIDE 1,000 ML IV SCH (07:57)
[2023-07-22] MEDS: POLYETHYLENE GLYCOL (HEALTHYLAX) 3350 17 GM PACKET PO SCH (09:09)
[2023-07-22] MEDS ORDERED: ENOXAPARIN NA (PORCINE) 40 MG/0.4 ML DISP.SYRIN SQ SCH (10:00)
[2023-07-22 10:08] LABS: BASO % 0.3 % (0-2.0); EOS % 1.3 % (0-4.5); HEMATOCRIT 28.5 % (32.4-45.2); HEMOGLOBIN 9.2 GM/dL (10.7-15.3); LYMPH % 14.7 % (8-40); MCH 29.3 pg (25.7-33.7); MCHC 32.2 g/dl (32.0-36.0); MEAN CELL VOLUME 91.2 fl (80-96); MEAN PLT VOLUME 6.7 fl (7.5-11.1); NEUT % 80.7 % (42.8-82.8); PLATELET COUNT 727 10^3/uL (134-434); RBC 3.13 M/mm3 (3.60-5.2); RDW 17.8 % (11.6-15.6)
[2023-07-22 10:22] LABS: POTASSIUM 4.1 mmol/L (3.5-5.1)
[2023-07-22 10:23] LABS: CALCIUM 8.4 mg/dL (8.5-10.1)
[2023-07-22 10:25] LABS: ALBUMIN 2.4 g/dl (3.4-5.0); BLOOD UREA NITROGEN 9.6 mg/dL (7-18); MAGNESIUM 2.1 mg/dL (1.8-2.4)
[2023-07-22 10:28] LABS: CREATININE 0.5 mg/dL (0.55-1.3)
[2023-07-22 10:30] LABS: BILIRUBIN,TOTAL 0.4 mg/dL (0.2-1)
[2023-07-22] MEDS: IBUPROFEN 600 MG TABLET (FP) PO SCH ×2 (12:04→19:13)
[2023-07-22] MEDS: LIDOCAINE 5% TOPICAL PATCH TP SCH (12:05)
[2023-07-22] MEDS ORDERED: FLUCONAZOLE 150 MG TABLET PO ONE (15:00)
[2023-07-22] MEDS ORDERED: oxyCODONE HCL 5 MG TABLET PO PRN (16:02)
[2023-07-22] MEDS ORDERED: LIDOCAINE PATCH REMOVAL MC SCH (22:00)
[2023-07-23 01:18] VITALS: RESP 18
[2023-07-23] MEDS: IBUPROFEN 600 MG TABLET (FP) PO SCH ×2 (01:48→09:35)
[2023-07-23] MEDS: PIPERACILLIN/TAZOB 3.375 GM 3.375 GM in DEXTROSE 5%-WATER - 50 ML IVPB SCH ×2 (01:48→09:34)
[2023-07-23 09:31] LABS: BASO % 0.4 % (0-2.0); EOS % 1.4 % (0-4.5); HEMATOCRIT 27.3 % (32.4-45.2); HEMOGLOBIN 9.1 GM/dL (10.7-15.3); LYMPH % 14.4 % (8-40); MCH 29.9 pg (25.7-33.7); MCHC 33.4 g/dl (32.0-36.0); MEAN CELL VOLUME 89.4 fl (80-96); MEAN PLT VOLUME 6.1 fl (7.5-11.1); MONO % 4.2 % (3.8-10.2); NEUT % 79.6 % (42.8-82.8); PLATELET COUNT 759 10^3/uL (134-434); RBC 3.06 M/mm3 (3.60-5.2); RDW 18.1 % (11.6-15.6); WHITE BLOOD COUNT 11.2 K/mm3 (4.0-10.0)
[2023-07-23] MEDS: LIDOCAINE 5% TOPICAL PATCH TP SCH (09:35)
[2023-07-23] MEDS: POLYETHYLENE GLYCOL (HEALTHYLAX) 3350 17 GM PACKET PO SCH (09:45)
[2023-07-23 09:49] LABS: POTASSIUM 4.5 mmol/L (3.5-5.1)
[2023-07-23 09:53] LABS: ALBUMIN 2.3 g/dl (3.4-5.0); BLOOD UREA NITROGEN 8.5 mg/dL (7-18); CALCIUM 8.4 mg/dL (8.5-10.1); MAGNESIUM 1.9 mg/dL (1.8-2.4)
[2023-07-23 09:56] LABS: CREATININE 0.5 mg/dL (0.55-1.3)
[2023-07-23 09:57] LABS: BILIRUBIN,TOTAL 0.4 mg/dL (0.2-1)
[2023-07-23 09:59] LABS: TOT PROT 6.1 g/dl (6.4-8.2)
[2023-07-23 15:40] VITALS: BP 135/72; PULSE 81; TEMP 97.9
[2023-07-23] MEDS ORDERED: AMOX TR/POT CLAV 875MG/125MG TABLETS (FP) PO SCH (17:30)
== END 2023-07-23 16:13 | disposition home or self-care (01) | DRG 561 ==
LOC: JER 19:24 → JERBED 07-20 05:02 → J8W 07-20 14:13
PROVIDERS: ADMIT Internal Medicine; ATTEND Nurse Practitioner Acute Care
DX: O85 Puerperal sepsis (principal); R50.9 Fever, unspecified; O99.53 Diseases of the respiratory system complicating the puerperium; N12 Tubulo-interstitial nephritis, not specified as acute or chronic; J18.9 Pneumonia, unspecified organism; J98.11 Atelectasis; D72.829 Elevated white blood cell count, unspecified; M54.9 Dorsalgia, unspecified; D75.839 Thrombocytosis, unspecified; Z86.718 Personal history of other venous thrombosis and embolism
CPT/HCPCS: 0241U-QW; 36415; 71046-TC-FY; 71250-TC; 71275-TC; 74177-TC; 76705-TC; 80048; 80053; 81003; 82550; 82553; 82803; 83605; 83735; 84100; 84484; 85025; 85379; 85610; 85730; 86140; 86850; 86900; 86901; 87040; 87086; 93005; 93010; 99285-25; Q9967